=== PATIENT | male | born 1990 | race Caucasian/White ===

== ENCOUNTER 2019-04-21 13:14 | Inpatient (IN) | payer OTHER ==
[2019-04-21 13:57] VITALS: TEMP 97.6; BMI 21.7
--- NOTE | 2019-04-21 16:34 | HP ---
CIWA Score - Admission Criteria [facility] Guidelines: Admission for Medically Managed Detox: Requires at least one of the followin. CIWA greater than 12 2. Seizures within the past 24 hours 3. Delirium tremens within the past 24 hours 4. Hallucinations within the past 24 hours 5. Acute intervention needed for co occurring medical disorder 6. Acute intervention needed for co occurring psychiatric disorder 7. Severe withdrawal that cannot be handled at a lower level of care (continued vomiting, continued diarrhea, abnormal vital signs) requiring intravenous medication and/or fluids 8. Admission ROS S - HPI Chief Complaint: "I'm here because I want to stay clean and not to go back to lifestyle I lived. I'd like to go to rehab for oxycodones" Allergies/Adverse Reactions: Allergies Allergy/AdvReac Type Severity Reaction Status Date / Time No Known Allergies Allergy Verified 04/21/19 13:45 History of Present Illness: 28 year old male with a past medical history of seizure (1 episode from xanax withdrawal) presented for evaluation for rehab from [facility]. Last used 3 weeks ago. Had 2 hernia repairs in 2013, for which he was prescribed oxycodone. Patient reports this is how he became addicted to these medications. Currently patient already finished detox at [facility], was there for seizure after xanax withdrawal. Reports being given methadone at [facility] but states that he did not like it. Reports that he slept on his L arm after taking his last xanax, which caused him to have a L wrist drop. A doctor put him in a L wrist brace, he reports that he has been slowly recovering his ability to extend his L wrist. No pain in the wrist. Percocets: 30-35 pills per day, last used 3 weeks ago Xanax: last used 3 weeks ago, 3-4 xanax a day Cigarettes: stopped 3 weeks ago, 1.5 packs per day since Cocaine: last used in high school Marijuana: 3 weeks ago, 5-6 "blunts" per day PSH: 2 hernia repairs Allergies: none Works at a [employer] - Ebola screening Have you traveled outside of the country in the last 21 days: No (N) Have you had contact with anyone from an Ebola affected area: No Do you have a fever: No - Review of Systems Constitutional: No Symptoms Reported EENT: reports: No Symptoms Reported Respiratory: reports: No Symptoms reported Cardiac: reports: No Symptoms Reported GI: reports: No Symptoms Reported : reports: No Symptoms Reported Musculoskeletal: reports: Back Pain Integumentary: reports: No Symptoms Reported Neuro: reports: No Symptoms reported Endocrine: reports: No Symptoms Reported Hematology: reports: No Symptoms Reported Patient History - Smoking Cessation Smoking history: Former smoker Have you smoked in the past 12 months: Yes Initiated information on smoking cessation: Yes 'Breaking Loose' booklet given: 04/21/19 - Substances abused Alprazolam (Xanax) Other (specify): 2mg Substance route: Oral Frequency: Daily Amount used: 3 sticks Age of first use: 23 Date of last use: 03/31/19 Marijuana/Hashish Substance route: Smoking Frequency: Daily Amount used: 6-8 blunts Age of first use: 17 Date of last use: 03/31/19 Other Other (specify): PERCOCET 10mg Substance route: Oral Amount used: 30-35 pills Age of first use: 23 Date of last use: 03/31/19 Admission Physical Exam [facility] - Vital Signs Vital Signs: Vital Signs - 24 hr 04/21/19 13:44 Temperature 97.6 F Pulse Rate 78 Respiratory 18 Rate Blood Pressure 122/73 - Physical General Appearance: Yes: No Apparent Distress, Nourished, Appropriately Dressed HEENTM: Yes: EOMI, Hearing grossly Normal, Normal ENT Inspection, Normocephalic , Normal Voice Respiratory: Yes: Chest Non-Tender, Lungs Clear, Normal Breath Sounds Neck: Yes: No masses,lesions,Nodules Breast: Yes: Within Normal Limits Cardiology: Yes: Regular Rhythm, Regular Rate Abdominal: Yes: Normal Bowel Sounds, Non Tender, Flat, Soft Genitourinary: Yes: Within Normal Limits Back: Yes: Normal Inspection Extremities: Yes: Normal Capillary Refill, Normal Inspection, Non-Tender Neurological: Yes: first mate II-XII NML intact, Fully Oriented, Alert, Normal Mood/ Affect, Normal Response, Other (L wrist in brace and has 2/5 muscle strength) Integumentary: Yes: Normal Color, Dry, Warm Breathalyzer - Breathalyzer Breathalyzer: 0 Urine Drug Screen - Test Device Lot number: [id number] Expiration date: 12/27/20 - Control Is test valid?: Yes - Results Drug screen NEGATIVE: Yes Urine drug screen results: THC-Marijuana, OXY-Oxycodone, MTD-Methadone, BZO- Benzodiazepines Inpatient Rehab Admission - Rehab Decision to Admit Inpatient rehab admission?: Yes - Initial Determination Are CD services needed?: Yes Free of communicable disease: Yes Not in need of hospitalization: Yes - Rehab Admission Criteria Previous failed treatment: No Poor recovery environment: No Comorbidities: No Lacks judgement: No Patient is meeting Inpatient Rehab admission criteria:: Yes
[2019-04-21] MEDS ORDERED: ACETAMINOPHEN 325 MG TABLET (FP) PO PRN (17:04)
[2019-04-21] MEDS ORDERED: hydrOXYzine PAMOATE 25 MG CAPSULE (FP) PO PRN (17:04)
[2019-04-21] MEDS ORDERED: LOPERAMIDE HCL 2 MG CAPSULE PO PRN (17:04)
[2019-04-21] MEDS ORDERED: MAGNESIUM CITRATE 300 ML BOTTLE PO PRN (17:04)
[2019-04-21] MEDS ORDERED: MAGNESIUM HYDROX 2400MG/30ML ORAL SUSPENSION 30 ML CUP PO PRN (17:04)
[2019-04-21] MEDS ORDERED: MENTHOL/PHENOL 1 EACH UD MM PRN (17:04)
[2019-04-21] MEDS ORDERED: IBUPROFEN 400 MG TABLET (FP) PO PRN (17:04)
[2019-04-21] MEDS ORDERED: guaiFENesin 200 MG/10 ML 10 ML UNIT-DOSE CUPS PO PRN (17:04)
[2019-04-21] MEDS ORDERED: P-EPHED 60MG/TRIPROLIDI 2.5MG TABLET PO PRN (17:04)
[2019-04-21] MEDS ORDERED: MAG HYDROX/AL HYDROX/SIMETH 30 ML UNIT-DOSE CUP PO PRN (17:04)
--- NOTE | 2019-04-21 17:06 | PN ---
Teaching Attending Note Name of Resident: Dante Irby ATTENDING PHYSICIAN STATEMENT I saw and evaluated the patient. I reviewed the resident's note and discussed the case with the resident. I agree with the resident's findings and plan as documented. SUBJECTIVE: 28 yo here for rehab. Has been in detox- left 3 weeks ago. Has not use since then. Does not want to use again OBJECTIVE: Vital Signs - 24 hr 04/21/19 13:44 Temperature 97.6 F Pulse Rate 78 Respiratory 18 Rate Blood Pressure 122/73 ASSESSMENT AND PLAN: Opioid use disorder- last use 3 weeks ago pt here for rehab
[2019-04-21] MEDS ORDERED: TUBERCULIN PPD 5 TU/0.1ML VIAL ID ONE (18:55)
[2019-04-21] MEDS ORDERED: THIAMINE HCL 100 MG TABLET (FP) PO SCH (22:00)
[2019-04-21] MEDS ORDERED: MELATONIN 5 MG TABLETS PO PRN (22:00)
[2019-04-22] MEDS ORDERED: PRENATAL VITAMINS W/ FOLIC ACID TABLET (FP) PO SCH (10:00)
[2019-04-22] MEDS ORDERED: NICOTINE POLACRILEX 4 MG GUM BUC PRN ×2 (10:30→10:39)
[2019-04-22] MEDS ORDERED: NICOTINE 21 MG/24 HOURS TOPICAL PATCH TD SCH (10:30)
[2019-04-22] MEDS ORDERED: NICOTINE 14 MG/24 HOURS TOPICAL PATCH TD SCH ×2 (10:39→11:00)
--- NOTE | 2019-04-22 10:43 | PN ---
[facility] Progress Note Note: Pt admitted yesterday. Reports he needs nicotine patch and gum and smokes 1/2 pack to a pack. Reports he was discharged from [facility] inpatient yesterday then came here for rehab. Detoxed from heroin. Vital Signs - 24 hr 04/21/19 04/22/19 04/22/19 13:44 01:01 03:30 Temperature 97.6 F Pulse Rate 78 Respiratory 18 18 18 Rate Blood Pressure 122/73 Lab results are pending.
[2019-04-22 11:16] VITALS: BP 112/59; PULSE 105
[2019-04-22 12:46] LABS: ALBUMIN 4.4 g/dl (3.4-5.0); BILIRUBIN,TOTAL 0.4 mg/dL (0.2-1); BLOOD UREA NITROGEN 17.8 mg/dL (7-18); CALCIUM 9.9 mg/dL (8.5-10.1); CREATININE 0.8 mg/dL (0.55-1.3); POTASSIUM 3.9 mmol/L (3.5-5.1); TOT PROT 7.9 g/dl (6.4-8.2)
[2019-04-22 12:48] LABS: HEMATOCRIT 42.7 % (35.4-49); HEMOGLOBIN 13.8 GM/dL (11.7-16.9); MCH 29.6 pg (25.7-33.7); MCHC 32.4 g/dl (32.0-35.9); MEAN CELL VOLUME 91.3 fl (80-96); MEAN PLT VOLUME 7.4 fl (7.5-11.1); PLATELET COUNT 280 K/MM3 (134-434); RBC 4.68 M/mm3 (4.00-5.60); RDW 14.1 % (11.9-15.9); WHITE BLOOD COUNT 11.3 K/mm3 (4.0-10.0)
--- NOTE | 2019-04-22 14:27 | DS ---
[facility] - [facility] Summary Admission Date: 04/21/19 Discharge Date: 04/22/19 - History Present History: Cannabis dependence, Opioid dependence, Sedative dependence Additional Comments: Pt is a 28 y/o male admitted yesterday to rehab from [facility] for opioid and sedative use disorder.Pt was referred from [facility] where he was admitted for seizure related to sedative withdrawal sx and was detoxed and referred to rehab. pt states he is not ready to stay inside here and had called his mother yesterday who was picking him up this morning. Pt was counselled and explained the risks of leaving treatment. Pt also stated "I'm going back to check on my wrist drop problem at [facility] then I want to go to the outpatient there". Offered Suboxone MAT consideration to patient here who says he could not stay but that it sounded good. Pt was encouraged to seek Suboxone option with [facility] if he decides as an option. Pt was referred to his counselor, Ms Isabel Goodwin before leaving. Pertinent Past History: Drug related withdrawal seizure Left wrist drop(on wrist brace) - Discharge Physical Exam Vital Signs: Vital Signs Temperature 97.6 F 04/21/19 13:44 Pulse Rate 105 H 04/22/19 10:00 Respiratory Rate 18 04/22/19 03:30 Blood Pressure 112/59 L 04/22/19 10:00 O2 Sat by Pulse Oximetry (%) Alert o x 3 nad oob ambulating with steady gait. denies s/h/i Pertinent Admission Physical Exam Findings: Laboratory Tests 04/22/19 04/22/19 08:50 08:50 WBC 11.3 H RBC 4.68 Hgb 13.8 Hct 42.7 MCV 91.3 MCH 29.6 MCHC 32.4 RDW 14.1 Plt Count 280 MPV 7.4 L Sodium 137 Potassium 3.9 Chloride 102 Carbon Dioxide 27 Anion Gap 9 BUN 17.8 Creatinine 0.8 Est GFR (CKD-EPI)AfAm 139.91 Est GFR (CKD-EPI)NonAf 120.72 Random Glucose 108 H Calcium 9.9 Total Bilirubin 0.4 AST 33 ALT 91 H Alkaline Phosphatase 78 Total Protein 7.9 Albumin 4.4 Left wrist drop on left wrist brace(See admission H/P). Status Unchanged - Treatment Discharge Condition: Discharge condition good Hospital Course: safe short rehab stay. accepted aftercare referral to [facility] CD program - Medication Discharge Medications: Ambulatory Orders NK [No Known Home Medication] 04/21/19 - Medication-Assisted Treatment (MAT) Medication-Assisted Treatment (MAT): No - Discharge Instructions Diet, activity, other medical instructions: Diet:Regular Activity: oob, ad guillermo Other medical instructions:Follow up with primary care and CD aftercare with [facility] ,[address] [place] [address] as recommended. Pt was reminded the risk of not staying in treatment which includes high risk for relapse and . - Diagnosis (1) Opioid dependence Status: Chronic Qualifiers: Substance use status: uncomplicated Qualified Code(s): F11.20 - Opioid dependence, uncomplicated (2) Sedative dependence Status: Chronic (3) Drug withdrawal seizure Status: Suspected Qualifiers: Complication of substance-induced condition: uncomplicated Qualified Code(s ): F19.230 - Other psychoactive substance dependence with withdrawal, uncomplicated; R56.9 - Unspecified convulsions (4) Wrist drop, left Status: Acute - Follow-up Referral Minutes to complete discharge: 15 - AMA Did Patient Leave Against Medical Advice: Yes
== END 2019-04-22 12:35 | disposition left against medical advice (07) | DRG 770 ==
LOC: YASAS 13:14 → Y5N 17:43
PROVIDERS: ADMIT Neuromusculoskeletal Medicine & OMM; ATTEND Neuromusculoskeletal Medicine & OMM
PROC: HZ42ZZZ Group Counseling for Substance Abuse Treatment, Cognitive-Behavioral (ICD-10-PCS; principal; 2019-04-21)
DX: F11.20 Opioid dependence, uncomplicated (principal); F13.20 Sedative, hypnotic or anxiolytic dependence, uncomplicated; M21.332 Wrist drop, left wrist; Z87.891 Personal history of nicotine dependence; Z86.69 Personal history of other diseases of the nervous system and sense organs
CPT/HCPCS: 36415; 80053; 85027; 86480; 86593